=== PATIENT | female | born 1960 | race Caucasian/White ===

== ENCOUNTER 2017-01-04 07:52 | Emergency (ER) | payer BC, OTHER ==
[2017-01-04 08:02] VITALS: BP 132/81
--- NOTE | 2017-01-04 08:28 | ERNOTE ---
ENT HPI Presenting Symptoms: other - patient presents with watering left eye after taking out her contacts last night Time Seen by Provider: 01/04/17 08:06 Source: patient Exam Limitations: no limitations - Immun/Allergies/Home Medications Immunizations: IMMUNIZATION HX Immunizations Up to Date Yes History of Influenza Vaccine No Hx Pneumococcal Vaccination No Allergies/Adverse Reactions: Allergies Allergy/AdvReac Type Severity Reaction Status Date / Time atropine sulfate Allergy loss of Verified 01/04/17 08:01 [From Lomotil] vision diphenoxylate HCl Allergy loss of Verified 01/04/17 08:01 [From Lomotil] vision influenza virus vaccine, Allergy almost Verified 01/04/17 08:01 specific as a [Influenza Virus child Vacc,Specific] shellfish derived Allergy anaphylacti Verified 01/04/17 08:01 c sulfamethoxazole Allergy shakiness Verified 01/04/17 08:01 [From Bactrim] trimethoprim [From Bactrim] Allergy shakiness Verified 01/04/17 08:01 Home Medications: HOME MEDICATIONS Estrogen,Con/M-Progest Acet [Prempro 0.625-2.5 mg Tablet] 1 each PO DAILY [Last Taken Unknown] Flaxseed Oil [Flax Oil] 1,000 mg PO DAILY 01/05/13 [Last Taken Unknown] Levothyroxine Sodium [Synthroid] 50 mcg PO DAILY 01/05/13 [Last Taken Unknown] Mccormick-3/Dha/Epa/Fish Oil [Fish Oil] 1,000 mg PO DAILY 01/05/13 [Last Taken Unknown] Pseudoephedrine HCl/Acrivas [Semprex-D 8 mg-60 mg Capsule] 1 each PO Q6H PRN 03/09 [Last Taken Unknown] Vitamin B Complex 1 each PO DAILY 01/05/13 [Last Taken Unknown] Bupropion HCl [Wellbutrin Xl] 300 mg PO DAILY 03/13/14 [Last Taken Unknown] Escitalopram Oxalate [Lexapro] 10 mg PO DAILY 03/13/14 [Last Taken Unknown] Omeprazole [Prilosec] 40 mg PO DAILY 03/13/14 [Last Taken Unknown] buPROPion HCL [Wellbutrin XL] 150 mg PO DAILY 03/13/14 [Last Taken Unknown] Tobramycin/Dexamethasone [Tobradex Eye Drops] 1 drp ANAI QID #5 ml 01/04/17 [ Last Taken Unknown] - History of Present Illness Narrative: Patient thinks perhaps she got something in her eye from her contact is getting irritated, last night she took out the contact and he continues to water now. Severity: Present: moderate ENT Location: Present: eye (L) Prearrival Treatment: Present: no prearrival treatment Modifying Factors - Improves: Reports: nothing Modifying Factors - Worsens: Reports: nothing Associated Symptoms - ENT: Reports: denies symptoms Review of Systems - Review of Systems Constitutional: Present: See HPI EYE: Present: see HPI, tearing ENT: Present: no symptoms reported Respiratory: Present: no symptoms reported Cardiology: Present: no symptoms reported Gastrointestinal/Abdominal: Present: no symptoms reported Genitourinary: Present: no symptoms reported Musculoskeletal: Present: no symptoms reported Skin: Present: no symptoms reported Neurological: Present: no symptoms reported Endocrine: Present: no symptoms reported Hematologic/Lymphatic: Present: no symptoms reported Psych: Present: no symptoms reported - Patient's Past Medical History Patient History - Medical: Depression, Hypothyroidism Patient History - Cardiac/Respiratory: No pertinent hx Patient History - Cancer: No Hx of Cancer Patient History - Surgical Procedures: Appendectomy, Cholecystectomy, , T & A Patient History - Other: None LMP (females 10-50): Menopausal - Social History Living Situations: home Abuse History: No History of abuse Psych History: Hx of Depression, Current tx/ever been on anti-depressants or anti-anxiety meds Smoking Status: Former smoker Alcohol Use: rarely Drug Use: none - Immunizations Immunizations Up to Date: Yes Hx Pneumococcal Vaccination: No History of Influenza Vaccine: No Physical Exam - Physical Exam General Appearance: Present: wd/wn, alert, mild distress Head Exam: Present: normal inspection Eye Exam: Normal inspection: right, PERRL: bilateral, Sclera injection: left, Eye drainage: left - clear Ears, Nose, Throat: Present: normal ENT inspection, H, normal pharynx Neck: Present: normal inspection, nontender Respiratory: Present: no respiratory distress, normal breath sounds, no accessory muscle use, chest nontender, lungs clear Cardiovascular/Chest: Present: regular rate, rhythm, no murmur, normal peripheral pulses Gastrointestinal/Abdominal: Present: normal bowel sounds, nontender, nondistended, soft, no organomegaly Rectal Exam: Present: deferred Back Exam: Present: normal inspection, normal range of motion Extremity Exam: Present: normal inspection, non-tender, no edema, normal range of motion Neurological Exam: Present: alert, oriented, normal mood/affect Skin Exam: Present: normal color, warm/dry Lymphatic Exam: Present: no adenopathy ED Progress - Vital Signs Patient's Vital Signs:: I have reviewed the patient's vital signs. Vital Signs: Vital Signs 01/04/17 07:56 Temperature 36.7 C Pulse Rate 91 Respiratory 16 Rate Blood Pressure 132/81 O2 Sat by Pulse 98 Oximetry - Progress/Reassessment Chief Complaint: Eye Injury/Trauma Plan - Plan Plan: I suspect there was some irritation to that occurred from the contact lens. Patient be started on one drop of Tobrex ophthalmic solution 4 times a day for 5 days. She'll clear contact lens and follow-up with her family physician as needed. Departure Clinical Impression: Conjunctivitis Qualifiers: Conjunctivitis type: acute Acute conjunctivitis type: bacterial Laterality: left Qualified Code(s): H10.32 - Unspecified acute conjunctivitis, left eye - Departure Disposition: Home self-care Condition: Good Instructions: Contact Precautions, [id number], Bacterial Conjunctivitis, Easy -to-Read Referrals: Cesar Hope MD [Primary Care Provider] - Prescriptions: Tobramycin/Dexamethasone [Tobradex Eye Drops] 1 drp LEFTEYE QID #5 ml
== END 2017-01-04 08:20 | disposition home or self-care (01) ==
LOC: ER 07:52
DX: H10.32 Unspecified acute conjunctivitis, left eye (principal); F32.9 Major depressive disorder, single episode, unspecified; E03.9 Hypothyroidism, unspecified